=== PATIENT | female | born 2000 | race Caucasian/White ===

== ENCOUNTER 2021-07-02 14:30 | Outpatient (CLI) | payer OTHER | END 2021-07-02 14:31 | disposition home or self-care (01) | LOC: CSHLAB 14:30 | PROVIDERS: ATTEND Obstetrics & Gynecology | DX: Z01.812 Encounter for preprocedural laboratory examination (principal); Z20.822 Contact with and (suspected) exposure to COVID-19; D27.0 Benign neoplasm of right ovary | CPT/HCPCS: 84703; 85027; 86850; 86900; 86901; U0003; U0005 ==